=== PATIENT | male | born 1955 | race Caucasian/White ===

== ENCOUNTER 2024-10-03 10:45 | Emergency (ER) | payer MEDICARE, OTHER ==
[~2024-10-03] VITALS: Ht 180.3 cm; Wt 106.4 kg
[2024-10-03] MEDS ORDERED: HYDRALAZINE HCL10 MG PO (11:12)
[2024-10-03] MEDS ORDERED: NYSTATIN1 EAC4 MISC (11:12)
[2024-10-03] MEDS ORDERED: ISOSORBIDE DINI20 MG PO (11:12)
[2024-10-03] MEDS ORDERED: METFORMIN HCL500 M2 PO (11:13)
[2024-10-03] MEDS ORDERED: JARDIANCE10 MG PO (11:13)
[2024-10-03] MEDS ORDERED: BASAGLAR K100 UNIT/1 SUB-Q (11:13)
[2024-10-03] MEDS ORDERED: BETAMETHASONE D15 G3 TOP (12:13)
[2024-10-03] MEDS ORDERED: TERBINAFINE HC250 MG PO (12:13)
[2024-10-03] MEDS ORDERED: CEPHALEXIN500 M1 PO (12:13)
[2024-10-03] MEDS ORDERED: TERBINAFINE15 G1 TOP (12:13)
[2024-10-03 12:20] VITALS: BP 96/64
== END 2024-10-03 12:20 | disposition home or self-care (01) ==
LOC: ED 10:45
DX: B35.6 Tinea cruris (principal); I10 Essential (primary) hypertension; E11.9 Type 2 diabetes mellitus without complications; Z79.4 Long term (current) use of insulin; Z79.82 Long term (current) use of aspirin; Z79.899 Other long term (current) drug therapy; Z88.8 Allergy status to other drugs, medicaments and biological substances
CPT/HCPCS: 99282